=== PATIENT | female | born 1955 | race Caucasian/White ===

== ENCOUNTER 2016-11-24 10:22 | Emergency (ER) | payer OTHER ==
[~2016-11-24] VITALS: Ht 172.7 cm; Wt 106.0 kg
[~2016-11-24 10:22] MED LIST: BENA25CA2 PO; HYDR-3580 PO; HYDR12.57 PO; XARE10TA PO
[2016-11-24 10:25] VITALS: BP 152/75; PULSE 61; RESP 16; TEMP 98.3; O2SAT 98
[2016-11-24] MEDS ORDERED: KETOROLAC TROMETHAMINE 60 MG/2 ML (IM) VIAL IM ONE (11:00)
--- NOTE | 2016-11-24 11:02 | PD ---
HPI Chief Complaint: Musculoskeletal Complaint Time Seen by Provider: 10:42 Travel History International Travel<30 days: No Contact w/Intl Traveler<30days: No Traveled to known affect area: No History of Present Illness HPI 61yo F with PMH of right knee replacement and lower extremity edema presents to the ED with c/o left knee pain for 2 weeks. States that it is worst when she stands and in extension. Denies any trauma, fever, chest pain, sob, n/v, abdominal pain, focal weakness or numbness. Pt states she started going back to work 1 week ago and works with [employer] with a lot of standing. Took ibuprofen yesterday night with little relieve. PFSH Past Medical History Cancer: No Cardiovascular Problems: Yes (HTN) Chest Pain: Yes Endocrine: No Gastrointestinal Disorders: Yes (LAP BAND) Genitourinary: Yes (SLIGHT INCONTINENCE) Hepatitis: No Hiatal Hernia: No Hypertension: Yes Immune Disorder: No Musculoskeletal: Yes (OSTEOARTHRITIS) Neurologic: No Psychiatric: No Reproductive: No Respiratory: Yes (ENVIRONMENTAL ALLERGIES) Past Surgical History Abdominal Surgery: Yes (LAP BAND) AICD: No Body Medical Devices: LAP BAND Cardiac Surgery: No Ear Surgery: No Endocrine Surgery: No Eye Surgery: No Genitourinary Surgery: No Gynecologic Surgery: No Joint Replacement: No Oral Surgery: Yes (TONSILLECTOMY) Pacemaker: No Thoracic Surgery: No Tonsillectomy: Yes Other Surgery: Yes (SKIN TUMOR REMOVAL/TOE SX) Social History Alcohol Use: Yes (SOCIAL) Tobacco Use: No Substance Use: No Allergies-Medications (Allergen,Severity, Reaction): Coded Allergies: Darvon (Unverified Allergy, Severe, Rash, 11/24/16) Demerol (Unverified Allergy, Severe, Rash, 11/24/16) Reported Meds & Prescriptions Reported Meds & Active Scripts Active Reported Hydrochlorothiazide 12.5 Mg Cap 25 Mg PO HS Review of Systems Except as stated in HPI: all other systems reviewed are Neg Physical Exam Narrative GENERAL: 61yo F not in distress. SKIN: Warm and dry. HEAD: Atraumatic. Normocephalic. CARDIOVASCULAR: Regular rate and rhythm. No murmur appreciated. RESPIRATORY: No accessory muscle use. Clear to auscultation. Breath sounds equal bilaterally. GASTROINTESTINAL: Abdomen soft, non-tender, nondistended. No rebound tenderness or guarding. MUSCULOSKELETAL: Left knee: No erythema or ecchymoses. Pt does have edema in bilateral lower extremity which is not new. Knee joint not hot to touch. FROM left knee. Mild ttp patella tendon. Sensation intact. DP 2+. NEUROLOGICAL: Awake and alert. No obvious cranial nerve deficits. Motor grossly within normal limits. Normal speech. PSYCHIATRIC: Appropriate mood and affect; insight and judgment normal. Data Data Last Documented VS Vital Signs Date Time Temp Pulse Resp B/P Pulse Ox O2 Delivery O2 Flow Rate FiO2 11/24/16 10:25 98.3 61 16 152/75 98 Orders Knee, Complete (4vws) (11/24/16 ) Ketorolac Inj (Toradol Inj) (11/24/16 11:00) MDM Medical Decision Making Medical Screen Exam Complete: Yes Emergency Medical Condition: Yes Differential Diagnosis Osteoarthritis vs. rheumatoid arthritis vs. contusion vs. ligamentous injury Narrative Course 61yo F with left knee pain for 2 weeks, worst with standing. Xray left knee showed no evidence for joint effusion. There are dgenerative changes in the knee with loss of articular cartilage in the medial compartment. Fracture is not appreciated. Pt given toradol 30mg IM and pain has resolved. Instructed pt to follow up with her orthopedic surgeon for further work up and to return to the ED if symptoms worsen. Diagnosis Primary Impression: UNILATERAL PRIMARY OSTEOARTHRITIS, LEFT KNEE Patient Instructions: General Instructions Departure Forms: Tests/Procedures Additional Instructions: Please follow up with your orthopedic surgeon as outpatient. Return to the ED if symptoms worsen. Med/Other Pt SpecificInfo: Prescription(s) given Scripts Ibuprofen 400 Mg [id number] Mg PO Q8H PRN (PAIN SCALE 1 TO 4) #20 TAB Ref 0 Prov:Ann-Marie Phillips 11/24/16 Disposition: 01 DISCHARGE HOME Condition: Stable PhillipsKayce herrmannbird VACA Nov 24, 2016 11:02
--- NOTE | 2016-11-24 11:26 | RADHPO ---
EXAM DATE/TIME: 11/24/2016 10:55 [facility] COMPARISON: No previous studies available for comparison. INDICATIONS: Left knee pain w/no known injury. Patient is 4 months post op right knee & has been using left knee m ore lately. MEDICAL HISTORY: Hypertension. Osteoarthritis. SURGICAL HISTORY: Tonsillectomy. Total knee replacement, right. Lap band. ENCOUNTER: Initial ACUITY: 2 weeks PAIN SCORE: 8/10 LOCATION: Left knee FINDINGS: There is no evidence for joint effusion. There are degenerative changes in the knee with loss of art icular cartilage in the medial compartment. Alignment is anatomic. Fracture is not appreciated. CONCLUSION: 1. Degenerative changes particularly in the medial compartment. Severino Marie MD FACR on November 24, 2016 at 11:18 Board Certified Radiologist. This report was verified electronically.
[2016-11-24] MEDS ORDERED: IBUP400T20 PO (12:22)
== END 2016-11-24 12:31 | disposition home or self-care (01) ==
LOC: PHED 10:22
DX: M17.12 Unilateral primary osteoarthritis, left knee (principal); I10 Essential (primary) hypertension
CPT/HCPCS: 73564; 96372; 99283; J1885